=== PATIENT | female | born 1945 | race Caucasian/White ===

== ENCOUNTER 2022-04-15 07:41 | Emergency (ER) | payer OTHER ==
[2022-04-15 08:44] LABS: Absolute Lymphocytes (CBC) 0.8 K/uL (0.7-4.9); Hematocrit 39.4 % (36.0-45.0); Lymphocytes % 5.6 % (15.3-44.8); MCV 86.3 fL (80-100); MPV 8.1 fL (7.6-11.3); RBC Red Blood Cell Count 4.56 M/uL (3.86-4.86)
[2022-04-15 09:04] LABS: Potassium 3.8 mmol/L (3.5-5.1)
[2022-04-15 09:16] LABS: Blood Morphology Comment NOT SEEN (NOT SEEN); Platelet Estimate ADEQ; White Blood Cell Scan OK (OK)
--- NOTE | 2022-04-15 09:27 | RAD REPORT ---
EXAM DESCRIPTION: US - UPPER EXTREMITY VENOUS UNILATE - 04/15/2022 9:16 am CLINICAL HISTORY: left arm swelling. COMPARISON: 2008 FINDINGS: Left internal jugular vein, left subclavian vein, left axillary vein, left brachial vein, left cephalic, left basilic, left ulnar and left radial veins demonstrate phasic signal. The veins are compressible. Doppler demonstrates good flow. . IMPRESSION: No sonographic evidence of thrombus involving the left upper extremity veins.
[2022-04-15] MEDS ORDERED: CLINDAMYCIN 600MG/D5W 600 MG/50 ML BAG IV ONE (09:57)
--- NOTE | 2022-04-15 10:17 | ER ---
Nurse's Notes [facility] Name: Basilia Traore Age: 76 yrs Sex: Female : 1945 Arrival Date: 04/15/2022 Time: 07:45 Bed 12 Private MD: Ishmael Waggoner C Diagnosis: Cellulitis of left upper limb Presentation: 04/15 08:08 Chief complaint: Patient states: left arm swelling x1 day-red, warm to touch. jg9 Coronavirus screen: Vaccine status: Patient reports receiving the 2nd dose of the covid vaccine. Ebola Screen: Patient negative for fever greater than or equal to 101.5 degrees Fahrenheit, and additional compatible Ebola Virus Disease symptoms Patient denies exposure to infectious person. Patient denies travel to an Ebola-affected area in the 21 days before illness onset. Initial Sepsis Screen: Does the patient meet any 2 criteria? No. Patient's initial sepsis screen is negative. Does the patient have a suspected source of infection? No. Patient's initial sepsis screen is negative. Risk Assessment: Do you want to hurt yourself or someone else? Patient reports no desire to harm self or others. Onset of symptoms is unknown. 08:08 Method Of Arrival: Ambulatory j9 08:08 Acuity: FATOU 3 jg9 Triage Assessment: 08:09 General: Appears in no apparent distress. Behavior is calm, cooperative. Pain: jg9 Complains of pain in left arm. Derm: swelling to left arm. Historical: - Allergies: 08:09 TETRACYCLINES; jg9 - PMHx: 08:09 Cancer; Cancer, Breast; Hypertension; jg9 - Immunization history:: Adult Immunizations Client reports receiving the 2nd dose of the Covid vaccine, Pneumococcal vaccine is not up to date, Flu vaccine is not up to date. - Social history:: Smoking status: Patient denies any tobacco usage or history of. - Family history:: not pertinent. - Hospitalizations: : No recent hospitalization is reported. Screenin:10 Abuse screen: Denies threats or abuse. Denies injuries from another. Nutritional jg9 screening: No deficits noted. Tuberculosis screening: No symptoms or risk factors identified. Fall Risk None identified. Assessment: 09:10 Reassessment: No changes from previously documented assessment. Patient and/or family jg9 updated on plan of care and expected duration. Pain level reassessed. Patient is alert, oriented x 3, equal unlabored respirations, skin warm/dry/pink. Vital Signs: 07:52 BP 137 / 76; Pulse 90; Resp 18; Temp 97.6; Pulse Ox 97% ; Weight 79.38 kg (R); Height 5 mb7 ft. 5 in. (165.10 cm) (R); 08:15 BP 130 / 64; Pulse 79; Resp 20 S; Pulse Ox 95% on R/A; jg9 09:15 BP 142 / 64; Pulse 78; Resp 20 S; Pulse Ox 98% on R/A; jg9 10:15 BP 147 / 62; Pulse 74; Resp 21 S; Pulse Ox 99% on R/A; jg9 07:52 Body Mass Index 29.12 (79.38 kg, 165.10 cm) [facility] ED Course: 07:45 Patient arrived in ED. as 07:46 Anuj Waggoner MD is Private Physician. as 07:46 Ishmael Waggoner MD is Private Physician. as 07:48 Mikael Mirza MD is Attending Physician. rn 07:52 Patient has correct armband on for positive identification. Bed in low position. Call mb7 light in reach. Side rails up X 1. Door closed. Noise minimized. Warm blanket given. 08:03 Alyson Ames, RN is Primary Nurse. jg9 08:09 Triage completed. jg9 08:10 Arm band placed on. jg9 08:30 Inserted saline lock: 22 gauge in right antecubital area, using aseptic technique. jg9 Blood collected. 09:10 No apparent distress. Resting quietly. camera technician. jg9 09:17 UPPER EXTREMITY VENOUS UNILATE In Process Unspecified. EDMS 10:16 Ishmael Waggoner MD is Referral Physician. rn 10:37 No provider procedures requiring assistance completed. jg9 10:37 IV discontinued. jg9 Administered Medications: 09:52 Drug: Clindamycin 600 mg Route: IVPB; Infused Over: 30 mins; Site: right antecubital; jg9 10:30 Follow up: IV Status: Completed infusion; IV Intake: 50ml jg9 Medication: 10:37 VIS not applicable for this client. jg9 Intake: 10:30 IV: 50ml; Total: 50ml. jg9 Outcome: 10:16 Discharge ordered by . rn 10:37 Discharged to home ambulatory. jg9 10:37 Condition: good 10:37 Discharge instructions given to patient, Instructed on discharge instructions, follow up and referral plans. Demonstrated understanding of instructions, follow-up care, Prescriptions given X 2. 10:38 Patient left the ED. jg9 Signatures: Dispatcher [employer] Felicia Syed Roman, MD MD rn Breneman, Mary [facility] Alyson Ames RN RN jg9
--- NOTE | 2022-04-15 10:18 | EDPHYS ---
Physician Documentation [facility] Name: Basilia Traore Age: 76 yrs Sex: Female : 1945 Arrival Date: 04/15/2022 Time: 07:45 Bed 12 Private MD: Ishmael Waggoner C ED Physician Mikael Mirza HPI: 04/15 08:50 This 76 yrs old Female presents to ER via Ambulatory with complaints of Arm Pain - rn swelling. 08:50 The patient or guardian complains of pain, swelling. The complaints affect the left rn bicep and dorsal aspect of left forearm. Onset: The symptoms/episode began/occurred yesterday. Treatment prior to arrival includes: no previous treatment. Modifying factors: The symptoms are alleviated by nothing. the symptoms are aggravated by nothing. Severity of symptoms: At their worst the symptoms were mild, in the emergency department the symptoms are unchanged. The patient has not experienced similar symptoms in the past. The patient has not recently seen a physician. Pt reports hx of lymphedema 2/2 breast cancer and lymph node removal in past, yesterday began with redness/warmth/pain to left arm. No fever, but feels generalized weakness and malaise. No chills. . Historical: - Allergies: 08:09 TETRACYCLINES; jg9 - PMHx: 08:09 Cancer; Cancer, Breast; Hypertension; jg9 - Immunization history:: Adult Immunizations Client reports receiving the 2nd dose of the Covid vaccine, Pneumococcal vaccine is not up to date, Flu vaccine is not up to date. - Social history:: Smoking status: Patient denies any tobacco usage or history of. - Family history:: not pertinent. - Hospitalizations: : No recent hospitalization is reported. ROS: 08:50 Constitutional: Negative for fever, chills, and weight loss, Eyes: Negative for injury, rn pain, redness, and discharge, Neck: Negative for injury, pain, and swelling, Cardiovascular: Negative for chest pain, palpitations, and edema, Respiratory: Negative for shortness of breath, cough, wheezing, and pleuritic chest pain, Abdomen/GI: Negative for abdominal pain, nausea, vomiting, diarrhea, and constipation, Back: Negative for injury and pain, MS/Extremity: + left arm swelling and pain Skin: + redness to left arm Neuro: Negative for headache, weakness, numbness, tingling, and seizure. Exam: 08:50 Constitutional: This is a well developed, well nourished patient who is awake, alert, rn and in no acute distress. Head/Face: Normocephalic, atraumatic. Cardiovascular: Regular rate and rhythm. No pulse deficits. Respiratory: No increased work of breathing, no retractions or nasal flaring. Skin: + mild erythema and warmth left arm, upper and lower. MS/ Extremity: Pulses equal, no cyanosis. Non-pitting edema LUE Neuro: Awake and alert, GCS 15 Vital Signs: 07:52 BP 137 / 76; Pulse 90; Resp 18; Temp 97.6; Pulse Ox 97% ; Weight 79.38 kg (R); Height 5 mb7 ft. 5 in. (165.10 cm) (R); 08:15 BP 130 / 64; Pulse 79; Resp 20 S; Pulse Ox 95% on R/A; jg9 09:15 BP 142 / 64; Pulse 78; Resp 20 S; Pulse Ox 98% on R/A; jg9 10:15 BP 147 / 62; Pulse 74; Resp 21 S; Pulse Ox 99% on R/A; jg9 07:52 Body Mass Index 29.12 (79.38 kg, 165.10 cm) mb7 MDM: 07:48 Patient medically screened. rn 10:15 Differential diagnosis: cellulitis, lymphangitis. Data reviewed: vital signs, nurses rn notes, lab test result(s), radiologic studies, ultrasound, and as a result, I will discharge patient. Counseling: I had a detailed discussion with the patient and/or guardian regarding: the historical points, exam findings, and any diagnostic results supporting the discharge/admit diagnosis, lab results, radiology results, the need for outpatient follow up, to return to the emergency department if symptoms worsen or persist or if there are any questions or concerns that arise at home. Response to treatment: the patient's symptoms have mildly improved after treatment, and as a result, I will discharge patient. Special discussion: I discussed with the patient/guardian in detail that at this point there is no indication for admission to the hospital. It is understood, however, that if the symptoms persist or worsen the patient needs to return immediately for re-evaluation. ED course: Pt with cellulitis LUE, hx of lymphedema, neg procal, elevated WBC, no sepsis. Patient wants to go home, will dc home with abx and return precautions.. 04/15 08:00 Order name: CBC with Diff; Complete Time: 09:32 rn 04/15 08:00 Order name: Basic Metabolic Panel; Complete Time: 09:32 rn 04/15 08:00 Order name: Blood Culture Adult (2) rn 04/15 08:00 Order name: Procalcitonin; Complete Time: 09:46 rn 04/15 08:00 Order name: Lactate; Complete Time: 09:32 rn 04/15 09:16 Order name: CBC Smear Scan; Complete Time: 09:32 EDMS 04/15 08:00 Order name: IV Start; Complete Time: 09:33 rn 04/15 08:00 Order name: Cardiac monitoring; Complete Time: 08:49 rn 04/15 09:17 Order name: UPPER EXTREMITY VENOUS UNILATE; Complete Time: 09:32 EDMS Administered Medications: 09:52 Drug: Clindamycin 600 mg Route: IVPB; Infused Over: 30 mins; Site: right antecubital; jg9 10:30 Follow up: IV Status: Completed infusion; IV Intake: 50ml jg9 Disposition Summary: 04/15/22 10:16 Discharge Ordered Location: Home rn Problem: new rn Symptoms: have improved rn Condition: Stable rn Diagnosis - Cellulitis of left upper limb rn Followup: rn - With: Ishmael Waggoner MD - When: 2 - 3 days - Reason: Recheck today's complaints, Re-evaluation by your physician Discharge Instructions: - Discharge Summary Sheet rn - Cellulitis, Adult rn Forms: - Medication Reconciliation Form rn - Thank You Letter rn - Antibiotic sports management internship - Prescription Opioid Use rn Prescriptions: - Cephalexin 500 mg Oral Capsule - take 1 capsule by ORAL route every 12 hours for 10 days; 20 capsule; Refills: rn 0, Product Selection Permitted - Clindamycin HCl 300 mg Oral Capsule - take 1 capsule by ORAL route every 6 hours for 10 days; 40 capsule; Refills: 0, rn Product Selection Permitted Signatures: Dispatcher [employer] EDMikael Barnhart MD MD rn Gilmore, Jennifer RN RN jg9 Corrections: (The following items were deleted from the chart) 09:17 08:00 Extremity Venous Uni [email or web address] ordered. EDMS EDMS
[2022-04-15 10:53] VITALS: TEMP 97.6
[2022-04-15 11:00] VITALS: BP 147/62; O2SAT 99
== END 2022-04-15 10:38 | disposition home or self-care (01) ==
LOC: ER 07:41
DX: L03.114 Cellulitis of left upper limb (principal); I10 Essential (primary) hypertension; Z85.3 Personal history of malignant neoplasm of breast; Z88.1 Allergy status to other antibiotic agents
CPT/HCPCS: 36415; 80048; 83605; 84145; 85025; 87040; 93971; 96365; 99284